=== PATIENT | male | born 1935 | race Caucasian/White ===

== ENCOUNTER 2016-05-13 11:10 | Day surgery (SDC) | payer MEDICARE, MEDICAID ==
[~2016-05-13] VITALS: Ht 171.4 cm; Wt 89.5 kg
[2016-05-13] MEDS ORDERED: SODIUM CHLORIDE 0.9% 1,000 ML IV ONE ×2 (12:17→13:15)
[2016-05-13 12:28] LABS: BASOPHILS # (AUTO) 0.08 K/uL (0.00-0.20); BASOPHILS % (AUTO) 0.6 % (0.0-2.0); EOSINOPHILS # (AUTO) 0.54 K/uL (0.00-0.70); EOSINOPHILS % (AUTO) 4.41 % (1.0-6.0); HEMATOCRIT 39.7 % (41-53); HEMOGLOBIN 12.9 g/dL (13.5-17.5); LYMPHOCYTES # (AUTO) 2.5 K/uL (1.0-4.8); LYMPHOCYTES % (AUTO) 20.2 % (22.0-44.0); MEAN CORPUSCULAR HGB CONC 32.5 G/dL (31.0-37.0); MEAN CORPUSCULAR VOLUME 92 fL (80-100); MONOCYTES # (AUTO) 0.8 K/uL (0.1-1.0); MONOCYTES % (AUTO) 6.6 % (2.0-9.0); NEUTROPHILS # (AUTO) 8.4 K/uL (1.8-7.7); NEUTROPHILS % (AUTO) 68.2 % (40.0-70.0); PLATELET COUNT (AUTO) 171 K/uL (150-450); RED CELL DISTRIBUTION WIDTH 14.6 % (11.5-14.5); WHITE BLOOD COUNT (AUTO) 12.3 K/uL (4.5-11.0)
[2016-05-13] MEDS ORDERED: ASPI81 PO (12:34)
[2016-05-13] MEDS ORDERED: OLME20TA14 PO (12:34)
[2016-05-13] MEDS ORDERED: FURO20 PO (12:34)
[2016-05-13] MEDS ORDERED: FERR-89 PO (12:34)
[2016-05-13] MEDS ORDERED: ATOR40TA28 PO (12:34)
[2016-05-13] MEDS ORDERED: CLOP75 PO (12:34)
[2016-05-13] MEDS ORDERED: TAMS0.4C32 PO (12:34)
[2016-05-13] MEDS ORDERED: CARV6 PO (12:34)
[2016-05-13] MEDS ORDERED: FINA5TAB41 PO (12:34)
[2016-05-13] MEDS ORDERED: ALLO100T PO (12:34)
[2016-05-13] MEDS ORDERED: OMEP20 PO (12:34)
[2016-05-13 12:44] LABS: INR 1.1 (0.9-1.1)
[2016-05-13] MEDS ORDERED: FentaNYL CITRATE-PF 100 MCG/2 ML VIAL IVP ONE ×2 (12:45→15:00)
[2016-05-13] MEDS ORDERED: MIDAZOLAM HCL 2 MG/2 ML VIAL IVP ONE ×2 (12:45→15:00)
[2016-05-13] MEDS ORDERED: ACETAMINOPHEN 325 MG TABLET PO PRN (13:00)
[2016-05-13] MEDS ORDERED: NITROGLYCERIN 0.4 MG SUBLINGUAL TABLET #25 SL PRN (13:00)
[2016-05-13] MEDS ORDERED: ATORVASTATIN CALCIUM 40 MG TABLET PO ONE (13:00)
[2016-05-13] MEDS ORDERED: DiphenhydrAMINE HCL 50 MG/ML VIAL IVP ONE (13:00)
[2016-05-13] MEDS ORDERED: ASPIRIN 325 MG TABLET PO ONE (13:00)
[2016-05-13] MEDS ORDERED: DiphenhydrAMINE HCL 50 MG/ML VIAL ONE (13:03)
[2016-05-13 13:10] LABS: CALCIUM, TOTAL 9.2 mg/dL (8.8-10.5); CREATININE 1.77 mg/dL (0.60-1.30); POTASSIUM 5.7 mmol/L (3.5-5.1)
[2016-05-13 13:26] LABS: THYROID STIMULATING HORMONE 1.79 uIU/mL (0.36-3.74)
[2016-05-13] MEDS ORDERED: SODIUM BICARBONATE 150 MEQ in DEXTROSE 5%-WATER 1,000 ML IV ONE (14:00)
[2016-05-13] MEDS ORDERED: LIDOCAINE HCL/PF 1% 30 ML VIAL ONE (14:07)
[2016-05-13] MEDS ORDERED: HEPARIN SODIUM 1000 UNITS/NS 1,000 ML ONE (14:07)
[2016-05-13] MEDS ORDERED: SODIUM BICARBONATE 50 MEQ/50 ML VIAL ONE (14:07)
[2016-05-13] MEDS ORDERED: IOHEXOL 300 MG/ML 150 ML VIAL ONE (14:07)
[2016-05-13] MEDS ORDERED: SODIUM BICARBONATE 150 MEQ in DEXTROSE 5%-WATER 850 ML IV ONE (14:15)
[2016-05-13 14:33] VITALS: BP 163/62
[2016-05-13] MEDS ORDERED: MIDAZOLAM HCL 2 MG/2 ML VIAL ONE (14:54)
[2016-05-13] MEDS ORDERED: FentaNYL CITRATE-PF 100 MCG/2 ML VIAL ONE (14:54)
[2016-05-13] MEDS ORDERED: HEPARIN SODIUM 1000 UNITS/NS 1,000 ML IARTER ONE (14:56)
[2016-05-13] MEDS ORDERED: IOHEXOL 300 MG/ML 150 ML VIAL IARTER ONE (15:00)
[2016-05-13] MEDS ORDERED: LIDOCAINE 1% 30 ML/SOD BICARB 8.4% 4 ML SQ ONE (15:00)
[2016-05-13] MEDS ORDERED: HydrALAZINE HCL 20 MG/ML VIAL ONE (15:46)
[2016-05-13] MEDS ORDERED: HydrALAZINE HCL 20 MG/ML VIAL IVP ONE (16:00)
[2016-05-13 16:08] VITALS: BP 105/61
== END 2016-05-13 21:15 | disposition home or self-care (01) ==
LOC: CATHLAB 11:10
PROVIDERS: ATTEND Internal Medicine Interventional Cardiology
DX: I25.10 Atherosclerotic heart disease of native coronary artery without angina pectoris (principal); I11.9 Hypertensive heart disease without heart failure; E11.9 Type 2 diabetes mellitus without complications; Z72.89 Other problems related to lifestyle; Z98.890 Other specified postprocedural states; Z79.01 Long term (current) use of anticoagulants
CPT/HCPCS: 36415; 71010; 80048; 83880; 84443; 85025; 85610; 85730; 93005; 93458; J0360; J1200; J1644; J2250; J3010; J3490 ×2; J7030; J7060; Q9967

== ENCOUNTER 2017-02-28 10:03 | Inpatient (IN) | payer MEDICARE, MEDICAID ==
[~2017-02-28] VITALS: Ht 177.8 cm; Wt 82.9 kg
[~2017-02-28 10:03] MED LIST: ALLO100T PO; ASPI81 PO; ATOR40TA28 PO; CARV6 PO; CLOP75 PO; FERR-89 PO; FINA5TAB41 PO; FURO20 PO; OLME20TA20 PO; OMEP20 PO; TAMS0.4C32 PO
[2017-02-28] MEDS ORDERED: DEXL60CA3 PO (10:15)
[2017-02-28] MEDS ORDERED: LORA10TA7 PO (10:15)
[2017-02-28 10:48] LABS: HEMATOCRIT 34.7 % (41-53); HEMOGLOBIN 10.9 g/dL (13.5-17.5); MEAN CORPUSCULAR HEMOGLOBIN 27.9 pg (26.0-34.0); MEAN CORPUSCULAR HGB CONC 31.3 G/dL (31.0-37.0); MEAN CORPUSCULAR VOLUME 89 fL (80-100); PLATELET COUNT (AUTO) 218 K/uL (150-450)
[2017-02-28 10:57] LABS: CALCIUM, TOTAL 7.9 mg/dL (8.8-10.5); CREATININE 1.42 mg/dL (0.60-1.30)
[2017-02-28 11:03] LABS: BILIRUBIN,TOTAL 0.6 mg/dL (0.1-1.0); TOTAL PROTEIN, SERUM 5.2 g/dL (6.4-8.2)
[2017-02-28 11:07] LABS: BAND NEUTROPHILS % (MANUAL) 22 % (1-5); LYMPHOCYTES % (MANUAL) 5 % (22-44); METAMYELOCYTES % 1 % (0-0); MONOCYTES % (MANUAL) 5 % (2-9); SEGMENTED NEUTROPHILS % 67 % (40-70)
[2017-02-28] MEDS ORDERED: PIPERACILLIN/TAZO 3.375 GM/D5W 50 ML IV ONE (11:15)
[2017-02-28] MEDS ORDERED: VANCOMYCIN HCL 1 GM/D5% WATER 200 ML IV ONE ×2 (12:00→18:00)
[2017-02-28 12:04] LABS: C.DIFF TOXINS A&B, Stool Negative (Negative)
[2017-02-28 12:07] LABS: C.DIFF GDH ANTIGEN, Stool Positive (Negative)
[2017-02-28] MEDS ORDERED: VANCOMYCIN HCL 250 MG/5 ML SOLUTION ORAL.SYG PO ONE (12:15)
[2017-02-28] MEDS ORDERED: 0.9% SODIUM CHLORIDE 10 ML SYRINGE IVP PRN (12:15)
[2017-02-28] MEDS ORDERED: ONDANSETRON HCL 4 MG/2 ML VIAL IVP PRN ×2 (12:15→17:00)
[2017-02-28] MEDS ORDERED: ACETAMINOPHEN 325 MG TABLET PO PRN ×2 (12:15→17:00)
[2017-02-28] MEDS ORDERED: MetroNIDAZOLE 500 MG/NACL 100 ML IV ONE (12:15)
[2017-02-28] MEDS ORDERED: IOVERSOL 350 MG/ML 100 ML VIAL ONE (12:19)
[2017-02-28 13:05] LABS: LACTIC ACID 11.3 mmol/L (0.4-2.0)
[2017-02-28] MEDS ORDERED: SODIUM CHLORIDE 0.9% 1,000 ML IV ONE ×2 (13:45→14:59)
[2017-02-28 13:52] LABS: APPEARANCE,URINE CLEAR (CLEAR); BILIRUBIN,URINE NEGATIVE (NEGATIVE); GLUCOSE, URINE (UA) NEGATIVE (NEGATIVE); KETONES,URINE NEGATIVE (NEGATIVE); LEUKOCYTE ESTERASE ,URINE NEGATIVE (NEGATIVE); NITRATE,URINE NEGATIVE (NEGATIVE); OCCULT BLOOD,URINE NEGATIVE (NEGATIVE); PROTEIN,URINE NEGATIVE (NEGATIVE)
[2017-02-28 14:01] LABS: INR 1.6 (0.9-1.1); PROTHROMBIN TIME 16.7 SEC (9.4-11.6)
[2017-02-28] MEDS ORDERED: OSEL75 PO (14:09)
[2017-02-28] MEDS ORDERED: GUAIF10 PO (14:09)
[2017-02-28] MEDS ORDERED: CLOP75 PO (14:09)
[2017-02-28] MEDS ORDERED: TAMS0.4C32 PO (14:09)
[2017-02-28] MEDS ORDERED: IPRA3AMP4 NEB (14:09)
[2017-02-28] MEDS ORDERED: PREG25 PO (14:09)
[2017-02-28] MEDS ORDERED: ACET-784 PO (14:09)
[2017-02-28] MEDS ORDERED: FLUT16H NASAL (14:09)
[2017-02-28] MEDS ORDERED: TRAM50TA4 PO (14:09)
[2017-02-28] MEDS ORDERED: LOPE2 PO (14:09)
[2017-02-28 14:56] LABS: INR 1.7 (0.9-1.1); PROTHROMBIN TIME 17.5 SEC (9.4-11.6)
[2017-02-28 14:58] LABS: ANION GAP 19 mmol/L (8-16); CALCIUM, TOTAL 7.4 mg/dL (8.8-10.5); CARBON DIOXIDE 14 mmol/L (22-29); CHLORIDE 102 mmol/L (98-107); CREATININE 1.12 mg/dL (0.60-1.30); GLOMERULAR FILTR. RATE CALC > 60 mL/min (>60); GLUCOSE,RANDOM 105 mg/dL (70-110); POTASSIUM 4.9 mmol/L (3.5-5.1); SODIUM SERUM 135 mmol/L (136-145); UREA NITROGEN, BLOOD 34 mg/dL (7-18)
[2017-02-28 15:05] LABS: ALANINE AMINOTRANSFERASE 94 U/L (12-78); ALBUMIN 0.9 g/dL (3.4-5.0); ALKALINE PHOSPHATASE 438 U/L (46-116); ASPARTATE AMINOTRANSFERASE 139 U/L (15-37); BILIRUBIN,TOTAL 0.5 mg/dL (0.1-1.0); TOTAL PROTEIN, SERUM 4.5 g/dL (6.4-8.2)
[2017-02-28 15:05] LABS: SOURCE, BLOOD GAS ARTERIAL
[2017-02-28 15:18] LABS: ABG A-A DIFF O2 209.8 mmHg (10-20.0); ABG BASE EXCESS -12.9 mmol/L (-2.0-3.0); ABG CARBOXYHEMOGLOBIN 0.1 % (0.0-1.5); ABG METHEMOGLOBIN 0.2 % (0.0-1.5); ABG OXYGEN CONTENT 13.1 mL/dL (15.0-23.0); ABG OXYGEN SATURATION 97.5 % (95.0-98.0); ABG OXYHEMOGLOBIN 97.2 % (94.0-100.0); ABG PCO2 34 mmHg (35-45); ABG PH 7.247 (7.35-7.450); ABG TOTAL HEMOGLOBIN 8.6 G/dL (12.0-18.0); PO2, ARTERIAL BG 471.6 mmHg (75.0-83.0)
[2017-02-28 15:19] LABS: O2 DEVICE,BLOOD GAS VENTILATOR (ROOM AIR); SITE, BLOOD GAS ARTERIAL LINE
[2017-02-28] MEDS: PHENYLEPHRINE 200 MG/D5%-WATER 250 ML IV PRN (15:56)
[2017-02-28] MEDS: NOREPINEPHRINE 4 MG/D5%-WATER 250 ML IV PRN ×2 (16:18→22:43)
[2017-02-28 16:40] VITALS: BP 62/33
[2017-02-28] MEDS ORDERED: GUM MASTIC/STORAX/MSAL/ALCOHOL LIQUID 0.67 ML VIAL TP ONE (16:54)
[2017-02-28 16:56] VITALS: BP 105/47
[2017-02-28 18:04] LABS: HEMATOCRIT 23.4 % (41-53); HEMOGLOBIN 7.4 g/dL (13.5-17.5); MEAN CORPUSCULAR HEMOGLOBIN 27.8 pg (26.0-34.0); MEAN CORPUSCULAR HGB CONC 31.5 G/dL (31.0-37.0); MEAN CORPUSCULAR VOLUME 88 fL (80-100); PLATELET COUNT (AUTO) 167 K/uL (150-450); RED BLOOD CELL COUNT(AUTO) 2.65 MIL/uL (4.50-5.90); RED CELL DISTRIBUTION WIDTH 16.4 % (11.5-14.5)
[2017-02-28 18:15] LABS: INR 1.6 (0.9-1.1); PROTHROMBIN TIME 16.8 SEC (9.4-11.6)
[2017-02-28 18:20] LABS: ALANINE AMINOTRANSFERASE 133 U/L (12-78); ALBUMIN 1.2 g/dL (3.4-5.0); ALKALINE PHOSPHATASE 248 U/L (46-116); ANION GAP 11 mmol/L (8-16); ASPARTATE AMINOTRANSFERASE 279 U/L (15-37); BILIRUBIN,TOTAL 0.5 mg/dL (0.1-1.0); CALCIUM, TOTAL 7.1 mg/dL (8.8-10.5); CARBON DIOXIDE 20 mmol/L (22-29); CHLORIDE 109 mmol/L (98-107); CREATININE 0.99 mg/dL (0.60-1.30); GLOMERULAR FILTR. RATE CALC > 60 mL/min (>60); GLUCOSE,RANDOM 98 mg/dL (70-110); SODIUM SERUM 140 mmol/L (136-145); UREA NITROGEN, BLOOD 30 mg/dL (7-18)
[2017-02-28 18:50] LABS: BAND NEUTROPHILS % (MANUAL) 43 % (1-5); LYMPHOCYTES % (MANUAL) 3 % (22-44); METAMYELOCYTES % 2 % (0-0); SEGMENTED NEUTROPHILS % 52 % (40-70)
[2017-02-28 18:50] LABS: ABG A-A DIFF O2 50.1 mmHg (10-20.0); ABG BASE EXCESS -10.1 mmol/L (-2.0-3.0); ABG CARBOXYHEMOGLOBIN 1.7 % (0.0-1.5); ABG HCO3 16.8 mmol/L (22.0-26.0); ABG METHEMOGLOBIN 0.2 % (0.0-1.5); ABG OXYGEN CONTENT 9.4 mL/dL (15.0-23.0); ABG OXYGEN SATURATION 96.8 % (95.0-98.0); ABG PCO2 47 mmHg (35-45); PO2, ARTERIAL BG 181.4 mmHg (75.0-83.0); SOURCE, BLOOD GAS ARTERIAL; TEMPERATURE, FAHRENHEIT, BG 98.6 FAHREN (96.0-98.6)
[2017-02-28 18:51] LABS: ABG PH 7.202 (7.35-7.450); ABG TOTAL HEMOGLOBIN 6.7 G/dL (12.0-18.0); SITE, BLOOD GAS ARTERIAL LINE
[2017-02-28 18:52] LABS: O2 DEVICE,BLOOD GAS VENTILATOR (ROOM AIR); PEEP,BG 5 cm H2O; VT, ABG 550 ml
[2017-02-28 18:53] LABS: PLATELET MORPHOLOGY COMMENT LARGE PLTS PRESENT
[2017-02-28] MEDS ORDERED: SODIUM CHLORIDE 0.9% 250 ML IV ONE (18:57)
[2017-02-28] MEDS: PANTOPRAZOLE SODIUM 40 MG/VIAL IVP SCH (19:00)
[2017-02-28 19:37] LABS: PATHOLOGY REVIEW, DIFF YES
[2017-02-28] MEDS ORDERED: PROPOFOL 1000 MG/ISO-OSM 100 ML IV PRN (19:37)
[2017-02-28 20:00] VITALS: BP 104/41
[2017-02-28] MEDS: MetroNIDAZOLE 500 MG/NACL 100 ML IV SCH (21:24)
[2017-03-01] VITALS: BP 76/35
[2017-03-01] MEDS ORDERED: DOPamine HCL 400 MG/D5%-WATER 250 ML IV PRN (00:02)
[2017-03-01] MEDS: PIPERACILLIN/TAZO 3.375 GM/D5W 50 ML IV SCH ×4 (00:15→17:07)
[2017-03-01] MEDS ORDERED: SODIUM BICARBONATE [ADULT] 8.4% 50 MEQ/50 ML SYRINGE IVP ONE (00:15)
[2017-03-01] MEDS ORDERED: SODIUM CHLORIDE 0.9% 500 ML IV ONE ×2 (00:18→02:00)
[2017-03-01] MEDS ORDERED: ROCURONIUM BROMIDE 10 MG/ML 5 ML VIAL IVP ONE (02:34)
[2017-03-01] MEDS ORDERED: SUCCINYLCHOLINE CHLORIDE 20 MG/ML 10 ML VIAL IVP ONE (02:34)
[2017-03-01] MEDS ORDERED: ETOMIDATE 2 MG/ML 10 ML VIAL IVP ONE (02:34)
[2017-03-01] MEDS ORDERED: PHENYLEPHRINE HCL 10 MG/ML VIAL IVP ONE (02:34)
[2017-03-01] MEDS ORDERED: LIDOCAINE HCL/PF 2% 5 ML VIAL INJ ONE (02:34)
[2017-03-01] MEDS ORDERED: FentaNYL CITRATE-PF 250 MCG/5 ML VIAL IVP ONE (02:37)
[2017-03-01] MEDS: NOREPINEPHRINE 4 MG/D5%-WATER 250 ML IV PRN ×3 (03:18→21:54)
[2017-03-01 04:00] VITALS: BP 90/36
[2017-03-01] MEDS ORDERED: INFLUENZA VIRUS VACCINE QVS 2017-18 (3YR+)/PF 60 MCG/0.5 ML SYRINGE IM ONE (04:45)
[2017-03-01] MEDS ORDERED: PNEUMOCOCCAL VACCINE POLYVALENT 0.5 ML VIAL [PPSV23] IM ONE (04:45)
[2017-03-01 05:29] LABS: HEMATOCRIT 26.5 % (41-53); HEMOGLOBIN 8.1 g/dL (13.5-17.5); MEAN CORPUSCULAR HGB CONC 30.7 G/dL (31.0-37.0); MEAN CORPUSCULAR VOLUME 91 fL (80-100); PLATELET COUNT (AUTO) 172 K/uL (150-450); RED CELL DISTRIBUTION WIDTH 17.1 % (11.5-14.5)
[2017-03-01 05:35] LABS: ALBUMIN 1.2 g/dL (3.4-5.0); BILIRUBIN,TOTAL 0.8 mg/dL (0.1-1.0); CALCIUM, TOTAL 7.2 mg/dL (8.8-10.5); CREATININE 1.36 mg/dL (0.60-1.30); MAGNESIUM 1.9 mg/dL (1.80-2.40); POTASSIUM 5.8 mmol/L (3.5-5.1); TOTAL PROTEIN, SERUM 4.2 g/dL (6.4-8.2)
[2017-03-01] MEDS ORDERED: DEXTROSE 50%-WATER 25 GM/50 ML SYRINGE IVP ONE ×3 (05:46→07:00)
[2017-03-01] MEDS: MetroNIDAZOLE 500 MG/NACL 100 ML IV SCH ×3 (05:57→22:17)
[2017-03-01 06:03] LABS: BAND NEUTROPHILS % (MANUAL) 53 % (1-5); LYMPHOCYTES % (MANUAL) 8 % (22-44); METAMYELOCYTES % 3 % (0-0); PHOSPHORUS 8.9 mg/dL (2.5-4.9); SEGMENTED NEUTROPHILS % 36 % (40-70)
[2017-03-01 06:04] LABS: PLATELET MORPHOLOGY COMMENT GIANT PLTS PRESENT
[2017-03-01 06:57] LABS: GLUCOSE,POINT OF CARE 71 MG/DL (70-110)
[2017-03-01 06:57] LABS: GLUCOSE,POINT OF CARE 23 MG/DL (70-110)
[2017-03-01 06:57] LABS: GLUCOSE,POINT OF CARE < 10 MG/DL (70-110)
[2017-03-01] MEDS ORDERED: INSULIN REGULAR, HUMAN 100 UNITS/ML IVP ONE (07:00)
[2017-03-01] MEDS ORDERED: SODIUM CHLORIDE 154 MEQ in DEXTROSE 10%-WATER 1,000 ML IV SCH (07:30)
[2017-03-01 08:00] VITALS: BP 106/33
[2017-03-01] MEDS: VANCOMYCIN HCL 1 GM/D5% WATER 200 ML IV SCH (08:27)
[2017-03-01] MEDS: PANTOPRAZOLE SODIUM 40 MG/VIAL IVP SCH (08:27)
[2017-03-01] MEDS: ALBUMIN HUMAN 25%-25GM/100ML 100 ML IV SCH ×2 (08:28→16:04)
[2017-03-01] MEDS: DEXTROSE 50%-WATER 25 GM/50 ML SYRINGE IVP PRN (09:06)
[2017-03-01] MEDS: PHENYLEPHRINE 200 MG/D5%-WATER 250 ML IV PRN (09:06)
[2017-03-01] MEDS ORDERED: CALCIUM GLUCONATE 1,000 MG in DEXTROSE 5%-WATER 50 ML IV ONE (10:00)
[2017-03-01 10:17] LABS: GLUCOSE,POINT OF CARE 340 MG/DL (70-110)
[2017-03-01 10:17] LABS: GLUCOSE,POINT OF CARE 40 MG/DL (70-110)
[2017-03-01] MEDS: SODIUM BICARBONATE 150 MEQ in DEXTROSE 5%-WATER 1,000 ML IV SCH ×2 (10:30→20:47)
[2017-03-01 11:22] LABS: CKMB RELATIVE INDEX 1.3 % (0.0-4.0); CREATINE KINASE MB 5.8 ng/mL (0-5); POTASSIUM 5.3 mmol/L (3.5-5.1)
[2017-03-01 12:00] VITALS: BP 175/42
[2017-03-01 13:06] LABS: CALCIUM, TOTAL 6.5 mg/dL (8.8-10.5); CREATININE 1.51 mg/dL (0.60-1.30); POTASSIUM 5.2 mmol/L (3.5-5.1)
[2017-03-01 16:00] VITALS: BP 117/51
[2017-03-01 19:09] LABS: CALCIUM, TOTAL 6.1 mg/dL (8.8-10.5); CREATININE 1.56 mg/dL (0.60-1.30); POTASSIUM 4.9 mmol/L (3.5-5.1)
[2017-03-01 20:00] VITALS: BP 91/26
[2017-03-01] MEDS: VASOPRESSIN 40 UNITS in DEXTROSE 5%-WATER 98 ML IV PRN (21:03)
[2017-03-02] VITALS: BP 105/26
[2017-03-02] MEDS: PIPERACILLIN/TAZO 3.375 GM/D5W 50 ML IV SCH ×2 (00:43→05:34)
[2017-03-02] MEDS: ALBUMIN HUMAN 25%-25GM/100ML 100 ML IV SCH ×3 (00:44→15:06)
[2017-03-02 04:00] VITALS: BP 103/29
[2017-03-02] MEDS: SODIUM BICARBONATE 150 MEQ in DEXTROSE 5%-WATER 1,000 ML IV SCH ×3 (04:33→22:59)
[2017-03-02 04:52] LABS: GLUCOSE,POINT OF CARE 132 MG/DL (70-110)
[2017-03-02] MEDS ORDERED: SODIUM CHLORIDE 0.9% 250 ML IV ONE (05:30)
[2017-03-02] MEDS: MetroNIDAZOLE 500 MG/NACL 100 ML IV SCH ×3 (05:34→22:58)
[2017-03-02 08:00] VITALS: BP 95/23
[2017-03-02 08:00] LABS: HEMATOCRIT 16.6 % (41-53); HEMOGLOBIN 5.4 g/dL (13.5-17.5); MEAN CORPUSCULAR HGB CONC 32.2 G/dL (31.0-37.0); MEAN CORPUSCULAR VOLUME 90 fL (80-100); PLATELET COUNT (AUTO) 66 K/uL (150-450); RED BLOOD CELL COUNT(AUTO) 1.85 MIL/uL (4.50-5.90); RED CELL DISTRIBUTION WIDTH 17.3 % (11.5-14.5)
[2017-03-02 08:10] LABS: ALBUMIN 1.7 g/dL (3.4-5.0); BILIRUBIN,TOTAL 1.3 mg/dL (0.1-1.0); CREATININE 1.95 mg/dL (0.60-1.30); MAGNESIUM 1.7 mg/dL (1.80-2.40); POTASSIUM 5.4 mmol/L (3.5-5.1); TOTAL PROTEIN, SERUM 3.4 g/dL (6.4-8.2)
[2017-03-02 08:44] LABS: ABG OXYGEN CONTENT 7.5 mL/dL (15.0-23.0); SOURCE, BLOOD GAS ARTERIAL; TEMPERATURE, FAHRENHEIT, BG 98.5 FAHREN (96.0-98.6)
[2017-03-02 08:53] LABS: ABG A-A DIFF O2 88.3 mmHg (10-20.0); ABG BASE EXCESS -5.8 mmol/L (-2.0-3.0); ABG CARBOXYHEMOGLOBIN 0.3 % (0.0-1.5); ABG METHEMOGLOBIN 0.2 % (0.0-1.5); ABG OXYGEN SATURATION 96.4 % (95.0-98.0); ABG OXYHEMOGLOBIN 95.9 % (94.0-100.0); ABG PCO2 44 mmHg (35-45); ABG PH 7.295 (7.35-7.450); ABG TOTAL HEMOGLOBIN 5.3 G/dL (12.0-18.0); SITE, BLOOD GAS ARTERIAL LINE
[2017-03-02 08:54] LABS: BAND NEUTROPHILS % (MANUAL) 34 % (1-5); LYMPHOCYTES % (MANUAL) 10 % (22-44); METAMYELOCYTES % 1 % (0-0); MONOCYTES % (MANUAL) 1 % (2-9); SEGMENTED NEUTROPHILS % 54 % (40-70)
[2017-03-02 08:54] LABS: O2 DEVICE,BLOOD GAS VENTILATOR (ROOM AIR); PEEP,BG 5 cm H2O; VT, ABG 550 ml
[2017-03-02] MEDS: VASOPRESSIN 40 UNITS in DEXTROSE 5%-WATER 98 ML IV PRN (09:30)
[2017-03-02] MEDS: PANTOPRAZOLE SODIUM 40 MG/VIAL IVP SCH (09:30)
[2017-03-02] MEDS: VANCOMYCIN HCL 1 GM/D5% WATER 200 ML IV SCH (09:30)
[2017-03-02] MEDS ORDERED: SODIUM CHLORIDE 0.9% 500 ML IV ONE ×3 (10:48→23:57)
[2017-03-02] MEDS: PIPERACILLIN SODIUM/TAZOBACTAM 2.25 GM in DEXTROSE 5%-WATER 50 ML IV SCH ×2 (11:58→18:23)
[2017-03-02 12:00] VITALS: BP 95/23
[2017-03-02 16:00] VITALS: BP 104/28
[2017-03-02 16:41] LABS: MAGNESIUM 1.7 mg/dL (1.80-2.40); PHOSPHORUS 8.9 mg/dL (2.5-4.9)
[2017-03-02] MEDS: PANTOPRAZOLE SODIUM 80 MG in SODIUM CHLORIDE 0.9% 100 ML IV SCH (18:22)
[2017-03-02 18:33] LABS: CREATININE 2.27 mg/dL (0.60-1.30); POTASSIUM 5.3 mmol/L (3.5-5.1)
[2017-03-02 19:00] LABS: CALCIUM, TOTAL 5.8 mg/dL (8.8-10.5)
[2017-03-02] MEDS: PHENYLEPHRINE 200 MG/D5%-WATER 250 ML IV PRN (19:32)
[2017-03-02 19:35] LABS: HEMOGLOBIN 6.9 g/dL (13.5-17.5)
[2017-03-02 20:00] VITALS: BP 102/34
[2017-03-03] VITALS (22 sets, daily range): BP systolic 87–134; BP diastolic 26–37
[2017-03-03] MEDS: PIPERACILLIN SODIUM/TAZOBACTAM 2.25 GM in DEXTROSE 5%-WATER 50 ML IV SCH ×5 (01:42→23:54)
[2017-03-03] MEDS: ALBUMIN HUMAN 25%-25GM/100ML 100 ML IV SCH ×4 (01:44→23:54)
[2017-03-03] MEDS: PANTOPRAZOLE SODIUM 80 MG in SODIUM CHLORIDE 0.9% 100 ML IV SCH ×3 (01:44→21:00)
[2017-03-03] MEDS: VASOPRESSIN 40 UNITS in DEXTROSE 5%-WATER 98 ML IV PRN ×2 (01:45→18:26)
[2017-03-03 05:07] LABS: HEMOGLOBIN 9.5 g/dL (13.5-17.5); MEAN CORPUSCULAR HEMOGLOBIN 29.1 pg (26.0-34.0); MEAN CORPUSCULAR HGB CONC 32.7 G/dL (31.0-37.0); MEAN CORPUSCULAR VOLUME 89 fL (80-100); RED BLOOD CELL COUNT(AUTO) 3.26 MIL/uL (4.50-5.90); RED CELL DISTRIBUTION WIDTH 16.1 % (11.5-14.5)
[2017-03-03 05:13] LABS: INR 1.3 (0.9-1.1); PROTHROMBIN TIME 13.5 SEC (9.4-11.6)
[2017-03-03 05:28] LABS: ALBUMIN 2.4 g/dL (3.4-5.0); BILIRUBIN,TOTAL 3.1 mg/dL (0.1-1.0); CREATININE 2.45 mg/dL (0.60-1.30); MAGNESIUM 1.6 mg/dL (1.80-2.40); POTASSIUM 5.2 mmol/L (3.5-5.1); TOTAL PROTEIN, SERUM 4.3 g/dL (6.4-8.2); VANCOMYCIN,RANDOM 20.1 mcg/mL (25.0-50.0)
[2017-03-03] MEDS: MetroNIDAZOLE 500 MG/NACL 100 ML IV SCH ×3 (05:30→22:12)
[2017-03-03 05:41] LABS: CALCIUM, TOTAL 5.4 mg/dL (8.8-10.5)
[2017-03-03] MEDS: SODIUM BICARBONATE 150 MEQ in DEXTROSE 5%-WATER 1,000 ML IV SCH ×2 (08:35→17:50)
[2017-03-03] MEDS: VANCOMYCIN HCL 1 GM/D5% WATER 200 ML IV SCH (08:37)
[2017-03-03] MEDS: DEXTROSE 50%-WATER 25 GM/50 ML SYRINGE IVP PRN ×2 (08:41→23:21)
[2017-03-03 10:15] LABS: ABG A-A DIFF O2 106.5 mmHg (10-20.0); ABG BASE EXCESS 0.3 mmol/L (-2.0-3.0); ABG HCO3 24.5 mmol/L (22.0-26.0); ABG METHEMOGLOBIN 0.3 % (0.0-1.5); ABG OXYGEN CONTENT 13.1 mL/dL (15.0-23.0); ABG OXYGEN SATURATION 97.7 % (95.0-98.0); ABG OXYHEMOGLOBIN 95.5 % (94.0-100.0); ABG PCO2 48 mmHg (35-45); ABG PH 7.353 (7.35-7.450); ABG TOTAL HEMOGLOBIN 9.6 G/dL (12.0-18.0); PO2, ARTERIAL BG 124.1 mmHg (71.0-79.0); SOURCE, BLOOD GAS ARTERIAL; TEMPERATURE, FAHRENHEIT, BG 98.6 FAHREN (96.0-98.6)
[2017-03-03 10:25] LABS: SITE, BLOOD GAS ARTERIAL LINE
[2017-03-03 10:26] LABS: O2 DEVICE,BLOOD GAS VENTILATOR (ROOM AIR); PEEP,BG 5 cm H2O; VT, ABG 550 ml
[2017-03-03 10:35] LABS: BAND NEUTROPHILS % (MANUAL) 21 % (1-5); LYMPHOCYTES % (MANUAL) 7 % (22-44); MONOCYTES % (MANUAL) 2 % (2-9); SEGMENTED NEUTROPHILS % 70 % (40-70)
[2017-03-03 10:37] LABS: PLATELET COUNT (AUTO) 38 K/uL (150-450)
[2017-03-03] MEDS ORDERED: MAGNESIUM SULFATE 4 GM/WATER 100 ML IV ONE (11:15)
[2017-03-03] MEDS ORDERED: CALCIUM GLUCONATE 2,000 MG in DEXTROSE 5%-WATER 50 ML IV ONE (11:15)
[2017-03-03 12:23] LABS: GLUCOSE,POINT OF CARE 161 MG/DL (70-110)
[2017-03-03 12:36] LABS: HEMATOCRIT 28.6 % (41-53); HEMOGLOBIN 9.6 g/dL (13.5-17.5); MEAN CORPUSCULAR HEMOGLOBIN 29.7 pg (26.0-34.0); MEAN CORPUSCULAR HGB CONC 33.6 G/dL (31.0-37.0); MEAN CORPUSCULAR VOLUME 88 fL (80-100); PLATELET COUNT (AUTO) 25 K/uL (150-450); RED BLOOD CELL COUNT(AUTO) 3.24 MIL/uL (4.50-5.90)
[2017-03-03 12:50] LABS: INR 2.3 (0.9-1.1)
[2017-03-03 13:23] LABS: BAND NEUTROPHILS % (MANUAL) 10 % (1-5); LYMPHOCYTES % (MANUAL) 5 % (22-44); MONOCYTES % (MANUAL) 1 % (2-9); SEGMENTED NEUTROPHILS % 84 % (40-70)
[2017-03-03] MEDS: NOREPINEPHRINE 4 MG/D5%-WATER 250 ML IV PRN ×2 (13:28→22:41)
[2017-03-03 15:12] LABS: CREATININE 2.67 mg/dL (0.60-1.30); POTASSIUM 4.7 mmol/L (3.5-5.1)
[2017-03-03 15:14] LABS: CALCIUM, TOTAL 5.7 mg/dL (8.8-10.5)
[2017-03-03] MEDS ORDERED: SODIUM CHLORIDE 0.9% 1,000 ML IV ONE (18:59)
[2017-03-03] MEDS ORDERED: SODIUM CHLORIDE 0.9% 500 ML IV ONE (22:10)
[2017-03-04] VITALS (28 sets, daily range): BP systolic 89–138; BP diastolic 25–57
[2017-03-04] MEDS: MORPHINE SULFATE 2 MG/ML SYRINGE IVP PRN ×3 (00:09→22:22)
[2017-03-04] MEDS: VASOPRESSIN 40 UNITS in DEXTROSE 5%-WATER 98 ML IV PRN ×2 (00:34→21:11)
[2017-03-04 02:17] LABS: GLUCOSE,POINT OF CARE 113 MG/DL (70-110)
[2017-03-04 02:17] LABS: GLUCOSE,POINT OF CARE 62 MG/DL (70-110)
[2017-03-04] MEDS: PANTOPRAZOLE SODIUM 80 MG in SODIUM CHLORIDE 0.9% 100 ML IV SCH ×3 (04:30→22:34)
[2017-03-04] MEDS: DEXTROSE 50%-WATER 25 GM/50 ML SYRINGE IVP PRN ×2 (05:32→11:55)
[2017-03-04] MEDS: PIPERACILLIN SODIUM/TAZOBACTAM 2.25 GM in DEXTROSE 5%-WATER 50 ML IV SCH ×3 (05:33→17:44)
[2017-03-04] MEDS: MetroNIDAZOLE 500 MG/NACL 100 ML IV SCH ×3 (06:05→22:03)
[2017-03-04 07:14] LABS: INR 2.6 (0.9-1.1)
[2017-03-04 07:50] LABS: ALBUMIN 2.3 g/dL (3.4-5.0); BILIRUBIN,TOTAL 4.2 mg/dL (0.1-1.0); CREATININE 2.36 mg/dL (0.60-1.30); MAGNESIUM 1.8 mg/dL (1.80-2.40); PHOSPHORUS 4.3 mg/dL (2.5-4.9); POTASSIUM 4.3 mmol/L (3.5-5.1); TOTAL PROTEIN, SERUM 3.9 g/dL (6.4-8.2)
[2017-03-04] MEDS: VANCOMYCIN HCL 1 GM/D5% WATER 200 ML IV SCH (08:20)
[2017-03-04] MEDS: ALBUMIN HUMAN 25%-25GM/100ML 100 ML IV SCH ×2 (08:20→15:34)
[2017-03-04 08:22] LABS: HEMATOCRIT 27.9 % (41-53); HEMOGLOBIN 9.6 g/dL (13.5-17.5); MEAN CORPUSCULAR HEMOGLOBIN 30.2 pg (26.0-34.0); MEAN CORPUSCULAR HGB CONC 34.5 G/dL (31.0-37.0); MEAN CORPUSCULAR VOLUME 87 fL (80-100); RED CELL DISTRIBUTION WIDTH 16.2 % (11.5-14.5)
[2017-03-04 08:25] LABS: PLATELET COUNT (AUTO) 8 K/uL (150-450)
[2017-03-04 08:34] LABS: ABG BASE EXCESS -1.2 mmol/L (-2.0-3.0); ABG CARBOXYHEMOGLOBIN 0.9 % (0.0-1.5); ABG HCO3 23.6 mmol/L (22.0-26.0); ABG METHEMOGLOBIN 0.3 % (0.0-1.5); ABG OXYHEMOGLOBIN 96.8 % (94.0-100.0); ABG PCO2 37 mmHg (35-45); ABG PH 7.416 (7.35-7.450); ABG TOTAL HEMOGLOBIN 10.1 G/dL (12.0-18.0); PO2, ARTERIAL BG 128.2 mmHg (71.0-79.0); SOURCE, BLOOD GAS ARTERIAL; TEMPERATURE, FAHRENHEIT, BG 97.2 FAHREN (96.0-98.6)
[2017-03-04 08:35] LABS: O2 DEVICE,BLOOD GAS VENTILATOR (ROOM AIR); PEEP,BG 5 cm H2O; SITE, BLOOD GAS ARTERIAL LINE; VT, ABG 550 ml
[2017-03-04 08:52] LABS: GLUCOSE,POINT OF CARE 116 MG/DL (70-110)
[2017-03-04 08:52] LABS: GLUCOSE,POINT OF CARE 70 MG/DL (70-110)
[2017-03-04 08:52] LABS: GLUCOSE,POINT OF CARE 70 MG/DL (70-110)
[2017-03-04 08:52] LABS: GLUCOSE,POINT OF CARE 58 MG/DL (70-110)
[2017-03-04] MEDS ORDERED: SODIUM CHLORIDE 0.9% 1,000 ML IV ONE (09:06)
[2017-03-04] MEDS: NOREPINEPHRINE 4 MG/D5%-WATER 250 ML IV PRN ×2 (11:17→20:34)
[2017-03-04 11:29] LABS: D-DIMER 16.67 mg/L FEU (0.00-0.50)
[2017-03-04 11:30] LABS: FIBRINOGEN 146 mg/dL (200-400)
[2017-03-04 11:54] LABS: FIBRIN SPLIT PRODUCTS Greater than 40 mcg/mL (<10)
[2017-03-04] MEDS: DEXTROSE 10%-WATER 1,000 ML IV SCH ×2 (12:50→22:35)
[2017-03-04 13:07] LABS: BAND NEUTROPHILS % (MANUAL) 62 % (1-5); LYMPHOCYTES % (MANUAL) 5 % (22-44); MONOCYTES % (MANUAL) 4 % (2-9); SEGMENTED NEUTROPHILS % 29 % (40-70)
[2017-03-04] MEDS ORDERED: CALCIUM GLUCONATE 100 MG/ML 10 ML IVP ONE (15:45)
[2017-03-04 16:16] LABS: CREATININE 2.16 mg/dL (0.60-1.30); POTASSIUM 4.1 mmol/L (3.5-5.1)
[2017-03-04 16:19] LABS: MAGNESIUM 1.7 mg/dL (1.80-2.40); PHOSPHORUS 4.3 mg/dL (2.5-4.9)
[2017-03-04] MEDS ORDERED: DIGOXIN 250 MCG/ML 2 ML AMP ONE (17:42)
[2017-03-04] MEDS ORDERED: DIGOXIN 250 MCG/ML 2 ML AMP IVP ONE ×2 (17:45→18:45)
[2017-03-04 17:57] LABS: GLUCOSE,POINT OF CARE 64 MG/DL (70-110)
[2017-03-04 17:57] LABS: GLUCOSE,POINT OF CARE 157 MG/DL (70-110)
[2017-03-04 18:22] LABS: GLUCOSE,POINT OF CARE 155 MG/DL (70-110)
[2017-03-05] VITALS: BP 125/27
[2017-03-05] MEDS: ALBUMIN HUMAN 25%-25GM/100ML 100 ML IV SCH ×3 (00:23→16:34)
[2017-03-05] MEDS: PIPERACILLIN SODIUM/TAZOBACTAM 2.25 GM in DEXTROSE 5%-WATER 50 ML IV SCH ×4 (00:23→18:00)
[2017-03-05 01:33] LABS: GLUCOSE,POINT OF CARE 170 MG/DL (70-110)
[2017-03-05] MEDS ORDERED: SODIUM CHLORIDE 0.9% 500 ML IV ONE (01:44)
[2017-03-05 04:00] VITALS: BP 130/26
[2017-03-05] MEDS: NOREPINEPHRINE 4 MG/D5%-WATER 250 ML IV PRN (05:11)
[2017-03-05] MEDS: MORPHINE SULFATE 2 MG/ML SYRINGE IVP PRN (05:12)
[2017-03-05] MEDS: MetroNIDAZOLE 500 MG/NACL 100 ML IV SCH ×3 (06:02→22:00)
[2017-03-05 08:00] VITALS: BP 120/31
[2017-03-05 08:25] LABS: BASOPHILS % (AUTO) 0.1 % (0.0-2.0); EOSINOPHILS % (AUTO) 0.4 % (1.0-6.0); HEMATOCRIT 28.3 % (41-53); HEMOGLOBIN 9.5 g/dL (13.5-17.5); LYMPHOCYTES % (AUTO) 4.6 % (22.0-44.0); MEAN CORPUSCULAR HEMOGLOBIN 30.3 pg (26.0-34.0); MEAN CORPUSCULAR HGB CONC 33.6 G/dL (31.0-37.0); MEAN CORPUSCULAR VOLUME 90 fL (80-100); NEUTROPHILS # (AUTO) 21.3 K/uL (1.8-7.7); RED BLOOD CELL COUNT(AUTO) 3.14 MIL/uL (4.50-5.90); RED CELL DISTRIBUTION WIDTH 16.5 % (11.5-14.5)
[2017-03-05 08:31] LABS: NEUTROPHILS % (AUTO) 94.9 % (40.0-70.0); PLATELET COUNT (AUTO) 19 K/uL (150-450)
[2017-03-05 08:36] LABS: CALCIUM, TOTAL 6.8 mg/dL (8.8-10.5); CREATININE 1.86 mg/dL (0.60-1.30); POTASSIUM 4.1 mmol/L (3.5-5.1)
[2017-03-05 08:40] LABS: PHOSPHORUS 2.9 mg/dL (2.5-4.9)
[2017-03-05] MEDS: VANCOMYCIN HCL 1 GM/D5% WATER 200 ML IV SCH (08:42)
[2017-03-05] MEDS: DEXTROSE 10%-WATER 1,000 ML IV SCH ×2 (08:43→18:15)
[2017-03-05] MEDS: PANTOPRAZOLE SODIUM 80 MG in SODIUM CHLORIDE 0.9% 100 ML IV SCH ×2 (08:44→23:00)
[2017-03-05 09:04] LABS: ALBUMIN 2.5 g/dL (3.4-5.0); BILIRUBIN,TOTAL 4.4 mg/dL (0.1-1.0); MAGNESIUM 1.6 mg/dL (1.80-2.40); TOTAL PROTEIN, SERUM 4.3 g/dL (6.4-8.2)
[2017-03-05 11:58] LABS: ABG A-A DIFF O2 107.8 mmHg (10-20.0); ABG BASE EXCESS -1.9 mmol/L (-2.0-3.0); ABG CARBOXYHEMOGLOBIN 1.1 % (0.0-1.5); ABG HCO3 22.9 mmol/L (22.0-26.0); ABG METHEMOGLOBIN 0.3 % (0.0-1.5); ABG OXYGEN CONTENT 12.8 mL/dL (15.0-23.0); ABG OXYGEN SATURATION 98.2 % (95.0-98.0); ABG OXYHEMOGLOBIN 96.8 % (94.0-100.0); ABG PCO2 44 mmHg (35-45); ABG PH 7.351 (7.35-7.450); ABG TOTAL HEMOGLOBIN 9.2 G/dL (12.0-18.0); SOURCE, BLOOD GAS ARTERIAL; TEMPERATURE, FAHRENHEIT, BG 98.6 FAHREN (96.0-98.6)
[2017-03-05 12:00] VITALS: BP 116/29
[2017-03-05 12:01] LABS: O2 DEVICE,BLOOD GAS VENTILATOR (ROOM AIR); SITE, BLOOD GAS ARTERIAL LINE
[2017-03-05 12:02] LABS: PEEP,BG 5 cm H2O; VT, ABG 550 ml
[2017-03-05] MEDS: VASOPRESSIN 40 UNITS in DEXTROSE 5%-WATER 98 ML IV PRN (12:16)
[2017-03-05 16:00] VITALS: BP 116/30
[2017-03-05 16:53] LABS: GLUCOSE,POINT OF CARE 198 MG/DL (70-110)
[2017-03-05 16:53] LABS: GLUCOSE,POINT OF CARE 191 MG/DL (70-110)
[2017-03-05] MEDS ORDERED: MORPHINE SULFATE 100 MG/NS/PF 100 ML IV PRN (18:45)
[2017-03-05 20:00] VITALS: BP 91/25
== END 2017-03-05 22:41 | disposition expired | DRG 853 ==
LOC: EMS 10:06 → ICU 14:32
PROVIDERS: ADMIT Internal Medicine; ATTEND Internal Medicine
PROC: 5A1955Z Respiratory Ventilation, Greater than 96 Consecutive Hours (ICD-10-PCS; 2017-02-28)
PROC: 0BH17EZ Insertion of Endotracheal Airway into Trachea, Via Natural or Artificial Opening (ICD-10-PCS; 2017-02-28)
PROC: 0D1B0Z4 Bypass Ileum to Cutaneous, Open Approach (ICD-10-PCS; 2017-02-28)
PROC: 0DTE0ZZ Resection of Large Intestine, Open Approach (ICD-10-PCS; principal; 2017-02-28 14:30)
PROC: 06HM33Z Insertion of Infusion Device into Right Femoral Vein, Percutaneous Approach (ICD-10-PCS; 2017-03-01)
PROC: B54BZZA Ultrasonography of Right Lower Extremity Veins, Guidance (ICD-10-PCS; 2017-03-01)
PROC: 5A1D70Z Performance of Urinary Filtration, Intermittent, Less than 6 Hours Per Day (ICD-10-PCS; 2017-03-05)
DX: A41.9 Sepsis, unspecified organism (principal); N17.0 Acute kidney failure with tubular necrosis; D65 Disseminated intravascular coagulation [defibrination syndrome]; J96.00 Acute respiratory failure, unspecified whether with hypoxia or hypercapnia; K55.049 Acute infarction of large intestine, extent unspecified; E43 Unspecified severe protein-calorie malnutrition; K63.1 Perforation of intestine (nontraumatic); B02.9 Zoster without complications; E83.39 Other disorders of phosphorus metabolism; K66.8 Other specified disorders of peritoneum; R65.21 Severe sepsis with septic shock; I50.31 Acute diastolic (congestive) heart failure; E87.2 Acidosis; I13.0 Hypertensive heart and chronic kidney disease with heart failure and stage 1 through stage 4 chronic kidney disease, or unspecified chronic kidney disease; K51.00 Ulcerative (chronic) pancolitis without complications; I25.5 Ischemic cardiomyopathy; D50.0 Iron deficiency anemia secondary to blood loss (chronic); E16.2 Hypoglycemia, unspecified; E78.00 Pure hypercholesterolemia, unspecified; E78.5 Hyperlipidemia, unspecified; E83.51 Hypocalcemia; E87.5 Hyperkalemia; I25.10 Atherosclerotic heart disease of native coronary artery without angina pectoris; I73.9 Peripheral vascular disease, unspecified; J44.9 Chronic obstructive pulmonary disease, unspecified; N40.0 Benign prostatic hyperplasia without lower urinary tract symptoms; N18.9 Chronic kidney disease, unspecified; M10.9 Gout, unspecified; Z95.5 Presence of coronary angioplasty implant and graft; Z86.73 Personal history of transient ischemic attack (TIA), and cerebral infarction without residual deficits; Z86.19 Personal history of other infectious and parasitic diseases; Z68.26 Body mass index [BMI] 26.0-26.9, adult
CPT/HCPCS: 74177; 82270; 82805; 82962; 83605; 83735; 84100; 84132; 85014; 85018; 85362; 85379; 85384; 86850; 86900; 86901; 86920; 86927; 87040; 87070; 87081; 87205; 87324; 87340; 87449; 88305; 88307; 90947; 93005; 93041; 93306; 93926; 93931; 94002; 94003; 96365; 96367; 99291; C9113; J0330; J0610; J1160; J1815; J2270; J2370; J2543; J3010; J3370; J3475; J3490; J7030; J7040; J7050; J7060; J7131; P9016; P9017; P9035; P9046